=== PATIENT | male | born 1990 | race Caucasian/White ===

== ENCOUNTER 2019-12-11 05:26 | Emergency (ER) | payer OTHER, MEDICAID ==
[2019-12-11] MEDS ORDERED: Lactated Ringers 1,000 ML IV SCH (05:30)
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
[2019-12-11] MEDS ORDERED: ceFAZolin/Dextrose,Iso-Osmotic 2 GM/50 ML Duplex Bag IV ONE (06:21)
[2019-12-11] MEDS ORDERED: Diphtheria/Tetanus Toxoids,Adult (Td) 0.5 ML Syringe ONE (06:22)
[2019-12-11] MEDS ORDERED: ceFAZolin 2 GM in Premix Bag 1 BAG IV STA (06:23)
[2019-12-11] MEDS ORDERED: Diphtheria,Pertussis(Acell),Tetanus Vaccine 0.5 ML Syringe IM ONE (06:23)
[2019-12-11] MEDS ORDERED: Iopamidol 612 MG/ML 100 ML Bottle IVPUSH ONE (06:32)
[2019-12-11] MEDS ORDERED: Lidocaine 1% PF 2 ML SDV ONE (07:30)
[2019-12-11] MEDS ORDERED: Midazolam 5 MG/ML 10 ML MDV ONE (07:30)
[2019-12-11] MEDS ORDERED: Etomidate 2 MG/ML 20 ML SDV IVPUSH ONE (07:30)
[2019-12-11] MEDS ORDERED: fentaNYL 100 MCG/2 ML SDV ONE (07:30)
[2019-12-11] MEDS ORDERED: Succinylcholine 200 MG/10 ML MDV ONE (07:30)
[2019-12-11] MEDS ORDERED: Rocuronium 50 MG/5 ML Vial ONE (07:30)
[2019-12-11] MEDS ORDERED: Lidocaine 1% 50 ML MDV ONE (07:47)
--- NOTE | 2019-12-11 13:34 | CT ---
Head CT Technique: Multiple axial sections through the brain were obtained. Intravenous contrast was utilized. Findings: Significant artifact is seen. This presumably is due to something external. Subarachnoid blood is noted within the left temporal length frontal regions. Extra-axial blood is noted on the right side which could possibly represent a small epidural hematoma or convex subdural hematoma. Probable small cortical petechial hemorrhages on the left side which are poorly seen due to artifact. No midline shift is seen at this time. No larger parenchymal hemorrhage is seen. Bone window settings were reviewed which shows no acute finding within the mastoid or paranasal sinuses. Questionable right nasal bone fracture either old or acute. Diffuse scalp thickening is seen with scalp injury. Nondisplaced fracture felt to be present within the right parietal region anteriorly. Impression: 1. Subarachnoid hemorrhage within the left temporal and frontal regions. 2. Small amount of extra-axial blood on the right side possibly due to small epidural hematoma or convex subdural hematoma. 3. Possible small petechial hemorrhages within the cortex on the left side poorly seen due to artifact. 4. Nondisplaced right anterior parietal bone fracture. 5. Diffuse scalp injury and swelling. Diagnostic Code #5 This report was dictated in MDT I agree with preliminary report from [facility], finalized on 12/11/19, 7:28 AM Central Daylight Time
--- NOTE | 2019-12-11 13:34 | CT ---
CT cervical spine Technique: Multiple axial sections were obtained from above C1 inferiorly to the bottom of T1. Reconstructed sagittal and coronal images were reviewed. Findings: Vertebral body heights are maintained. Disc spaces are fairly well maintained. Bony density is noted off the tip of the spinous process of C7 which appears old. No acute fracture or other bony abnormality is appreciated. No bony central or bony neural foraminal stenosis is seen. No abnormal subluxation is seen. Impression: 1. Old avulsion fracture off the tip of the spinous process of C7. 2. Nothing acute is appreciated on CT study of the cervical spine. Diagnostic code #2 This report was dictated in MDT I agree with preliminary report from [facility], finalized on 12/11/19, 7:29 AM Central Daylight Time
--- NOTE | 2019-12-11 13:34 | CR ---
Chest: Portable supine view of the chest was obtained. Comparison: No prior chest imaging is available. Heart size and mediastinum are normal. Portion of the left chest not included on study. Lungs otherwise are clear. Bony structures showed no discrete abnormality. Impression: 1. Portion of the left chest not included in the study. 2. Supine chest x-ray otherwise shows nothing acute. Diagnostic code #2 This report was dictated in MDT
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
--- NOTE | 2019-12-11 13:58 | CR ---
Left shoulder: 2 views of the left shoulder were obtained. Comparison: No previous study. Glenohumeral joint and acromioclavicular joint appears within normal limits. No fracture or other bony abnormality is appreciated. Impression: 1. No abnormality is identified on 2 view left shoulder study. Diagnostic code #1 This report was dictated in MDT
--- NOTE | 2019-12-11 14:16 | CT ---
CT chest Technique: Multiple axial sections through the chest were obtained. Intravenous contrast was utilized. Findings: No pericardial fluid is seen. Aorta appears within normal limits. No mediastinal hematoma is seen. No axillary adenopathy is seen. Soft tissue air seen within the left chest wall. Small left apical pneumothorax is seen. Areas of increased density seen within the right lung base and right upper lung possibly due to mild areas of contusion. Minimal peripheral density next of the pleura seen within the lingula either due to atelectasis or minimal contusion. Lungs otherwise are clear. Minimal nondisplaced fracture within the left 6th rib is seen laterally. Difficult to exclude minimal nondisplaced fracture within the left 7th rib laterally.. Slight superior endplate compression fractures are seen within T11 and T12 as well as T8. There is an additional fracture line. Reconstructed sagittal images of the sternum appear intact. Impression: 1. Thoracic spine fractures as noted above. 1 or 2 left rib fractures are seen. 2. Subcutaneous air within the left chest with small left-sided pneumothorax. 3. Possible small areas of pulmonary contusion as noted above. Diagnostic code #3 This report was dictated in MDT I agree with preliminary report from [facility], finalized on 12/11/19, 7:[address] abdomen and pelvis Technique: Multiple axial sections were obtained from above the dome of the diaphragm inferiorly through the pubic symphysis. Intravenous contrast was utilized. No oral contrast has been given. Findings: Small amount of fluid is seen around the right side of the liver. Small inferior liver laceration is suggested although details are mildly diminished due to motion artifact. This liver laceration extends into the liver by about 3 cm compatible with grade 2 injury. No additional abnormality appreciated within the liver. Spleen size is normal. Pancreas is within normal limits. Gallbladder contains no calcified gallstones. Adrenal glands show no nodule. Kidneys show symmetric contrast enhancement and appear unremarkable. Aorta shows no aneurysm. No retroperitoneal adenopathy or mesenteric abnormalities are seen. No pelvic mass or adenopathy is seen. No fracture within the pelvis or hips are seen. Impression: 1. Grade 2 liver laceration believed to be present within the inferior right lobe. 2. Small amount of blood felt to be present around the liver. 3. No additional abnormality appreciated on CT study of the abdomen and pelvis. Diagnostic code #3 This report was dictated in MDT I agree with preliminary report from [facility], finalized on 12/11/19, 7:52 AM Central Daylight Time
--- NOTE | 2019-12-11 14:16 | CR ---
Chest: Portable supine view of the chest was obtained. Comparison: Prior chest x-ray performed earlier on the same day (5:10 AM). Findings: Tip of endotracheal tube lies at the origin of the right mainstem bronchus and should be withdrawn. Nasogastric tube is seen with tip lying in the area of the stomach antrum in satisfactory position. Left-sided chest tube is seen. Previous left-sided rib fractures and vertebral body fractures are not optimally appreciated on this plain film study. Impression: 1. Tip of endotracheal tube at the origin of the right mainstem bronchus and should be withdrawn. 2. Endotracheal tube with tip in satisfactory position. 3. Left chest tube. No pneumothorax seen on this study. Diagnostic code #3 This report was dictated in MDT
--- NOTE | 2019-12-11 14:17 | CR ---
Chest: Portable supine view of the chest was obtained. Comparison: Previous chest x-ray performed earlier on the same day (8:18 AM). Nasogastric tube has been withdrawn. Tip no longer lies within the right mainstem bronchus and lies at the upper level of the clavicles in satisfactory position. Nasogastric tube remain satisfactory in position. Left sided chest tube remain stable. Lungs are clear. No pneumothorax is seen. Impression: 1. Satisfactory position of nasogastric tube and endotracheal tube. 2. No pneumothorax. 3. Nothing acute is seen within the lungs. Diagnostic code #2 This report was dictated in MDT
== END 2019-12-11 08:50 ==
LOC: JD.ED 05:26 → EDBD 05:26 → JD.ED 08:50
DX: S36.113A Laceration of liver, unspecified degree, initial encounter (principal); S06.309A Unspecified focal traumatic brain injury with loss of consciousness of unspecified duration, initial encounter; S27.0XXA Traumatic pneumothorax, initial encounter; S22.32XA Fracture of one rib, left side, initial encounter for closed fracture; S22.069A Unspecified fracture of T7-T8 vertebra, initial encounter for closed fracture; S22.089A Unspecified fracture of T11-T12 vertebra, initial encounter for closed fracture; F15.10 Other stimulant abuse, uncomplicated; R74.0 Nonspecific elevation of levels of transaminase and lactic acid dehydrogenase [LDH]; R73.9 Hyperglycemia, unspecified; V58.5XXA Driver of pick-up truck or van injured in noncollision transport accident in traffic accident, initial encounter
CPT/HCPCS: 31500; 32551; 36415; 43752; 51702; 70450; 71045; 71260; 72125; 73030; 73080; 74177; 80053; 80306; 80307; 81001; 83735; 85007; 85027; 85610; 85730; 87635; 90471; 90714; 93005; 96361; 96365; 99285; J0330; J0690; J2001; J2250; J3010; J3490; J7050; J7120; Q9967; 32557; 93010; 99284; U0002